=== PATIENT | male | born 1980 | race Caucasian/White ===

== ENCOUNTER 2018-04-25 19:26 | Emergency (ER) | payer SELFPAY ==
[~2018-04-25] VITALS: Ht 172.7 cm; Wt 83.9 kg
[2018-04-25 19:36] VITALS: BP 130/86
--- NOTE | 2018-04-25 19:38 | NUR ---
TO LOBBY A/W BED, AMBULATORY, VSS, VANDANA NOTED
--- NOTE | 2018-04-25 20:15 | NUR ---
TO ER BED 8
--- NOTE | 2018-04-25 20:20 | NUR ---
Alba virgen in [facility] - 04/25/18 at 2152 by [facility] TO ER BED 8
--- NOTE | 2018-04-25 20:20 | NUR ---
PATIENT PRESENTS ER WITH HEAD ACHE AND PAIN TO THE EYE X 1 DAY.PT IS A/O X4. PT STATED HE HAS NOT BEEN FEELING WELL ALL WEEK WITH CONGESTION AND COUGH. PATIENT STATES PAIN OF 7/10 AT THIS TIME; VSS; PATIENT POSITIONED FOR COMFORT; HOB ELEVATED; BEDRAILS UP X2; BED DOWN. ER MD MADE AWARE OF PT STATUS. KNA AND NO PREVIOUS MEDICAL HX.
--- NOTE | 2018-04-25 20:22 | NUR ---
Patient being evaluated by physician at bedside.
[2018-04-25] MEDS ORDERED: KETOROLAC 60 MG/2 ML VIAL IM ONE (20:25)
--- NOTE | 2018-04-25 20:55 | NUR ---
PT STATES HE HAD SOME RELIEF FROM HIS PAIN MEDICATION. ER MD MADE AWARE
[2018-04-25 21:20] VITALS: BP 130/86
--- NOTE | 2018-04-25 21:20 | NUR ---
Patient discharged with v/s stable. Written and verbal after care instructions given and explained. Patient alert, oriented and verbalized understanding of instructions. Ambulatory with steady gait. All questions addressed prior to discharge. ID band removed. Patient advised to follow up with PMD. Rx of MOTRIN, PREDNISONE, SUDAFED, WAS GIVEN given. Patient educated on indication of medication including possible reaction and side effects. Opportunity to ask questions provided and answered.
== END 2018-04-25 21:20 | disposition home or self-care (01) ==
LOC: MED 19:26
DX: J32.9 Chronic sinusitis, unspecified (principal); F17.200 Nicotine dependence, unspecified, uncomplicated
CPT/HCPCS: 96372; 99283; J1885